=== PATIENT | female | born 1960 | race Caucasian/White ===

== ENCOUNTER 2022-04-13 14:01 | Inpatient (IN) | payer OTHER, MEDICAID ==
[~2022-04-13] VITALS: Ht 162.6 cm; Wt 51.3 kg
[2022-04-13 14:23] VITALS: BP 125/56
--- NOTE | 2022-04-13 14:28 | NUR ---
PT AMB TO BED 4.
[2022-04-13 15:13] LABS: BASOPHILS # (AUTO) 0.1 K/uL (0.00-0.22); BASOPHILS % (AUTO) 0.6 % (0.0-2.0); EOSINOPHILS % (AUTO) 0.1 % (0.0-4.0); HEMATOCRIT 36.9 % (36-48); HEMOGLOBIN 12.1 g/dL (12.0-16.0); LYMPHOCYTES # (AUTO) 1.6 K/uL (2.5-16.5); LYMPHOCYTES % (AUTO) 13.4 % (20.5-51.1); MEAN CORPUSCULAR HEMOGLOBIN 30 pg (27-31); MEAN CORPUSCULAR HGB CONC 33 g/dL (33-37); MEAN CORPUSCULAR VOLUME 91.8 fL (80-94); MONOCYTES # (AUTO) 0.5 K/uL (0.8-1.0); NEUTROPHILS # (AUTO) 9.9 K/uL (1.8-7.7); NEUTROPHILS % (AUTO) 81.9 % (42.2-75.2); PLATELET COUNT (AUTO) 155 K/uL (140-450); RED BLOOD CELL COUNT(AUTO) 4.01 MIL/uL (4.20-5.40); RED CELL DISTRIBUTION WIDTH 14.3 % (11.6-13.7); WHITE BLOOD COUNT (AUTO) 12.1 K/uL (4.8-10.8)
[2022-04-13 15:30] LABS: ALBUMIN 3.2 g/dL (3.4-5.0); ANION GAP 21.3 (8-16); CARBON DIOXIDE 18.1 mmol/L (21-32); CREATININE 1.7 mg/dL (0.6-1.3); POTASSIUM 4.4 mmol/L (3.5-5.1); TOTAL BILIRUBIN 0.7 mg/dL (0.0-1.0)
--- NOTE | 2022-04-13 15:35 | NUR ---
62F presents to ED with c/o ABD pain and buttock pain x3 days. Pt reports a constant, aching like, 4/10 pain to lower abd and buttock region. Pt denies trauma/injury, denies fevers, chills, n/v/d, UTI symptoms or use of meds for pain.
--- NOTE | 2022-04-13 15:39 | NUR ---
LACTIC ACID 7.7 REPORTED BY JACQUI. NOTIFIED DR DESAI.
[2022-04-13] MEDS ORDERED: NACL 0.9% 1,000 ML IV ONE ×2 (15:40→17:25)
[2022-04-13] MEDS ORDERED: MORPHINE SULFATE 4 MG/ML SYR IVP ONE (15:45)
--- NOTE | 2022-04-13 15:55 | NUR ---
Pt taken to CT via [facility].
--- NOTE | 2022-04-13 16:11 | NUR ---
Pt brought back from CT via [facility] for rehab medicine.
--- NOTE | 2022-04-13 16:45 | NUR ---
PT PLACED ON BEDSIDE MONITOR, HR OF [address] DESAI MADE AWARE AND BROUGHT TO BEDSIDE. PT PLACED ON DEFIB PADS AND 3 LEAD ECG'S.
[2022-04-13] MEDS ORDERED: ADENOSINE 6 MG/2 ML VIAL IVP ONE ×3 (16:47→18:25)
[2022-04-13] MEDS ORDERED: ETOMIDATE 20 MG/10 ML VIAL IVP ONE ×2 (16:55→18:25)
--- NOTE | 2022-04-13 16:57 | NUR ---
Note berta in EDM - 04/13/22 at 1815 by MEDRIKI PT PLACED ON BEDSIDE MONITOR, HR OF [address] DESAI MADE AWARE AND BROUGHT TO BEDSIDE. PT PLACED ON DEFIB PADS AND 3 LEAD ECG'S.
[2022-04-13] MEDS ORDERED: LORazepam 2 MG/ML VIAL ONE (17:12)
[2022-04-13] MEDS ORDERED: HALOPERIDOL IM 5 MG/ML VIAL ONE (17:19)
[2022-04-13] MEDS ORDERED: HALOPERIDOL IM 5 MG/ML VIAL IVP ONE (17:25)
[2022-04-13] MEDS ORDERED: LORazepam 2 MG/ML VIAL IVP ONE (17:25)
--- NOTE | 2022-04-13 17:25 | NUR ---
AT BEDSIDE FOR SVT 1649-6MG ADENOSINE GIVEN 1651-12MG ADENOSINE GIVEN, PT HR STILL IN 180'S 1701-PT PLACED ON 4L N/C. RT AT BEDSIDE FOR CARDIOVERSION 1702-8MG ETOMIDATE GIVEN 1703- HR 186- SHOCK DELIVERED AT 120J FOR CARDIOVERSION 1704-HR NOW 85 S/P CARDIOVERSION 1715- PT AGITATED, 1MG ATIVAN GIVEN. 1720-PT CONTINUES TO BE AGITATED 5MG HALDOL IV GIVEN
[2022-04-13] MEDS ORDERED: MORPHINE SULFATE 2 MG/ML SYR IVP PRN (18:25)
[2022-04-13] MEDS ORDERED: ZOLPIDEM 10 MG TAB PO PRN (18:25)
[2022-04-13] MEDS ORDERED: ONDANSETRON 4 MG/2 ML VIAL IVP PRN (18:25)
[2022-04-13] MEDS ORDERED: DOCUSATE SODIUM 100 MG GELCAP PO PRN (18:25)
[2022-04-13] MEDS ORDERED: MAG SULF 2000 MG/WATER PREMIX 50 ML IV PRN (18:25)
[2022-04-13] MEDS ORDERED: POTASSIUM CHLORIDE 10 MEQ TABER PO PRN (18:25)
[2022-04-13] MEDS ORDERED: ACETAMINOPHEN 325 MG TAB PO PRN (18:25)
[2022-04-13] MEDS ORDERED: cefTRIAXone 1,000 MG VIAL ONE (18:46)
[2022-04-13] MEDS ORDERED: SERT50TA PO (19:13)
[2022-04-13] MEDS ORDERED: [UNRECOGNIZED DRUG - CODE] PO (19:13)
[2022-04-13] MEDS ORDERED: CLOZ100T PO (19:13)
[2022-04-13] MEDS ORDERED: TRAZ-343 PO (19:13)
--- NOTE | 2022-04-13 19:21 | NUR ---
Pt report given to MARK TORRES. Transfer of care at this time.
--- NOTE | 2022-04-13 19:22 | NUR ---
Patient lying in bed, awake, chest rise and fall symmetrical, no s/s of distress.
--- NOTE | 2022-04-13 21:30 | NUR ---
Patient lying in bed, awake, chest rise and fall symmetrical, no s/s of distress.
[2022-04-13] MEDS: LORazepam 2 MG/ML VIAL IVP PRN (21:33)
--- NOTE | 2022-04-13 23:00 | NUR ---
Patient lying in bed, awake, chest rise and fall symmetrical, no c/o pain or s/s of distress.
--- NOTE | 2022-04-14 00:54 | NUR ---
Patient lying in bed, awake, chest rise and fall symmetrical, no c/o pain or s/s of distress.
--- NOTE | 2022-04-14 01:16 | NUR ---
Patient will be admitted to care of . Admited to telemetry. Will go to room 123A. Belongings list completed. Report to Ayesha RN. Ayesha RN verbalized understanding of report, no further questions.
[2022-04-14 01:40] VITALS: BP 93/47
--- NOTE | 2022-04-14 01:40 | NUR ---
REPORT RECEIVED FROM MELISSA FLORES. 47 YO DUSKY, FRAIL FEMALE RECEIVED VIA GURNEY TO 123A C/C EVALUATION OF DIFFUSE PAIN BACK, PELVIS AND LIMBS. IN ADDITION C/O "WEAKNESS" UPON ARISING LAST A.M AT [facility] ACCORDING TO CAREGIVER THERE BY THE NAME OF LAUREN BARRY. CALLED TO GET ADMISSION INFO FROM LIAM WILD (ADMIN) PT IS A POOR HISTORIAN AND MEDICAL RECORDS ARE LIMITED. CAREGIVER KNOWLEDGE LIMITED. TOLD TO CALL BACK IN A.M. DX: KATHARINA, LACTIC ACIDOSIS, SVT 180s. REPORTED ADENOSINE 12 MG AND 6 MG GIVEN. NO TO MINIMAL EFFECT. CARDIOVERTED. ST@ 102 PER TELE UPON ARRIVAL. O2 3L/NC. SATS 95%. B/P 93/47 HR 98. RESTLESS, FLINGING LEGS OVER RAILS. FREQUENTLY. PT TEACHING PER SAFETY PROTOCOL. PT UNABLE TO COMPLY PER COGNITIVE ACUITY AND RETENTION. CONTINUOUS OBSERVATION THEREFORE. LACTIC ACID 7.7 AND 4.5. DENIES CHEST PAIN OR PAIN OF ANY KIND SPECIFICALLY IN LEGS PELVIS AND BACK. 20 GA LFA SALINE LOCKED INTACT, CLEAN AND DRY. CT LUMBAR AND THORACIC SHOWING NO ACUTE FX. CONT TO MONITOR AND OBSERVE AT BEDSIDE NURSE AND SITTER.
[2022-04-14 04:00] VITALS: BP 98/52
--- NOTE | 2022-04-14 04:30 | NUR ---
PT SLEEPING FOR SHORT PERIODS. POSITION CHANGES AND LINEN CHANGE PER INCONTINENCE NEEDED. SKIN INTACT. NOTED 5BY 8.5 CM GRANULATED BIRTHMARK. PICTURE TAKEN. REPORTED FACIAL DUSKINESS DUE TO SKIN CANCER WHICH HAS NOTICEABLY SPREAD THE LAST 10 YEARS TO COVER MORE OF FACE. CONTINUE TO MONITOR. REMAINS STABLE.
[2022-04-14 05:35] LABS: BASOPHILS % (AUTO) 0.3 % (0.0-2.0); HEMATOCRIT 31.4 % (36-48); HEMOGLOBIN 10.5 g/dL (12.0-16.0); LYMPHOCYTES # (AUTO) 1.3 K/uL (2.5-16.5); LYMPHOCYTES % (AUTO) 9.9 % (20.5-51.1); MEAN CORPUSCULAR HEMOGLOBIN 31 pg (27-31); MEAN CORPUSCULAR HGB CONC 34 g/dL (33-37); MEAN CORPUSCULAR VOLUME 91.3 fL (80-94); MONOCYTES # (AUTO) 0.8 K/uL (0.8-1.0); NEUTROPHILS # (AUTO) 10.8 K/uL (1.8-7.7); NEUTROPHILS % (AUTO) 83.8 % (42.2-75.2); PLATELET COUNT (AUTO) 150 K/uL (140-450); RED BLOOD CELL COUNT(AUTO) 3.44 MIL/uL (4.20-5.40); WHITE BLOOD COUNT (AUTO) 12.9 K/uL (4.8-10.8)
[2022-04-14 06:06] LABS: ANION GAP 18.3 (8-16); CARBON DIOXIDE 20.2 mmol/L (21-32); POTASSIUM 3.5 mmol/L (3.5-5.1)
--- NOTE | 2022-04-14 07:30 | NUR ---
REPORT TO Adrienne NURSE FOR CONTINUITY OF CARE. ENDORSED ER LATER PROVIDED NAME OF KIN JIM FULLER TO CONTACT THIS A.M [phone] FOR MORE INFORMATION CONCERNING PT HX. RELINQUISHED CARE OF PT AT THIS TIME.
[2022-04-14 08:00] VITALS: BP 116/69
[2022-04-14] MEDS: LORazepam 2 MG/ML VIAL IVP PRN ×2 (08:26→19:56)
--- NOTE | 2022-04-14 09:14 | NUR ---
PATIENT HAS BEEN SCREENED AND CATEGORIZED MODERATE NUTRITION RISK. PATIENT WILL BE SEEN WITHIN 3-5 DAYS OF ADMISSION. REVIEWED BY MIHIR GUTIERREZ RD
[2022-04-14 12:00] VITALS: BP 112/69
--- NOTE | 2022-04-14 14:33 | NUR ---
PHYSICAL THERAPY NOTE:ATTEMPTED TO SEE PATIENT FOR PHYSICAL THERAPY EVALUATION HOWEVER PATIENT NOT APPROPRIATE AT THIS TIME. GIVEN MEDICATION. NOT ABLE TO FOLLOW ANY COMMANDS. DOES NOT RESPOND TO QUESTIONS; CONTINUES TO SLEEP. WILL FOLLOW UP WHEN APPROPRIATE.
[2022-04-14 16:00] VITALS: BP 105/65
--- NOTE | 2022-04-14 19:49 | NUR ---
RECEIVED SHIFT REPORT FROM JERSON FLORES, PATIENT WAS MILDLY AGITATIED BUT WILL FOLLOW COMMANDS WHERE HER NAME IS CALLED. PATIENT IS ON 3 LITERS OF OXYGEN SATURATION NOTED AT 95%. NO NOTED RESPIRATORY DISTRESS. NO NOTED S/S OF PAIN OR DISCOMFORT. [email or web address]
[2022-04-14 20:00] VITALS: BP 104/65
--- NOTE | 2022-04-14 20:00 | NUR ---
Patient's Plan of Care was discussed and reviewed with KENRICK: STEVE
[2022-04-15] VITALS: BP 112/70
--- NOTE | 2022-04-15 00:09 | NUR ---
AFTER ATIVAN PRN, PATIENT IS CURRENTLY ASLEEP WITHOUT DISTRESS. OXYGEN REMAIN ON 3 LITERS NO NOTED S/S OR RESPIRATORY DISTRESS. PATIENT REMAINS CLEAN AND DRY AT THIS TIME. NURSING WILL CONTINUE TO ANTICIPATE PATIENT' S NEEDS AND WILL FREQUENT HER ROOM. [email or web address]
[2022-04-15] MEDS: LORazepam 2 MG/ML VIAL IVP PRN (02:02)
--- NOTE | 2022-04-15 02:02 | NUR ---
COVERING RN IS JANA RN, WAS ABLE TO GIVE PATIENT ATIVAN BECAUSE PATIENT WAS PUNCHING THE AIR OR KICKING IN THE BED. PATIENT'S BLOOD PRESSURE 106/68 HR 99. [email or web address]
[2022-04-15 04:00] VITALS: BP 101/67
[2022-04-15 05:11] LABS: BASOPHILS % (AUTO) 0.3 % (0.0-2.0); EOSINOPHILS % (AUTO) 0.5 % (0.0-4.0); HEMATOCRIT 35.1 % (36-48); HEMOGLOBIN 11.6 g/dL (12.0-16.0); LYMPHOCYTES # (AUTO) 1.3 K/uL (2.5-16.5); LYMPHOCYTES % (AUTO) 14.8 % (20.5-51.1); MEAN CORPUSCULAR HEMOGLOBIN 31 pg (27-31); MEAN CORPUSCULAR HGB CONC 33 g/dL (33-37); MEAN CORPUSCULAR VOLUME 92.7 fL (80-94); MONOCYTES # (AUTO) 0.7 K/uL (0.8-1.0); MONOCYTES % (AUTO) 7.5 % (1.7-9.3); NEUTROPHILS % (AUTO) 76.9 % (42.2-75.2); PLATELET COUNT (AUTO) 177 K/uL (140-450); RED BLOOD CELL COUNT(AUTO) 3.78 MIL/uL (4.20-5.40); RED CELL DISTRIBUTION WIDTH 14.7 % (11.6-13.7)
--- NOTE | 2022-04-15 05:15 | NUR ---
RT WAS NOT AWARE OF PATIENT ON 3 LITER OF OXYGEN VIA NASAL CANULA. PATIENT DESATURATED WHEN HEAD OF BED IS NOT ELEVATED. PATIENT SLEPT WITHOUT INCIDENT. PATIENT WAS KEPT CLEAN AND DRY. PATIENT WAS BATHED TO PREVENT BED SOARS. SIDE RAILS UP X 4 SAFETY AND POSITIONING. NURSING WILL FREQUENT THE ROOM TO ANTICIPATE NEEDS. [email or web address]
[2022-04-15 06:25] LABS: ANION GAP 16.9 (8-16); CARBON DIOXIDE 18.6 mmol/L (21-32); CREATININE 0.8 mg/dL (0.6-1.3); POTASSIUM 3.5 mmol/L (3.5-5.1)
--- NOTE | 2022-04-15 07:18 | NUR ---
ENDORSED PATIENT TO ROMAN FLORES, PATIENT WAS BEGINNING TO AWAKEN AND BECOMING FIDGETY AND REMOVE HE PULSE OX. [email or web address]
--- NOTE | 2022-04-15 07:20 | NUR ---
RECEIVED PT FROM NIGHT RN, PT IS ASLEEP, LYIMNG ON THE BED WITH SIDE RAILS UP AND CALL LIGHT WITHIN REACH, PT IS ON O2 3L NC, RESPIRATION IS EVEN, VISIBLE CHEST RISE AND FALL, SKIN IS COLORED ROMERO DUE TO SKIN CANCER, IV LINE NOTED ON THE LEFT FOREARM G. 20 ON SALINE LOCK, NO SIGN OF DISTRESS NOTED AND WILL CONTINUE TO MONITOR PT.
[2022-04-15 08:00] VITALS: BP 110/76
--- NOTE | 2022-04-15 09:29 | NUR ---
PT IS STILL SLEEPING NOW, BUT AROUSABLE WHEN CALLED BY NAME AND BY TOUCH, WAS OFFERED TO HAVE BREAKFAST BUT REFUSED, WILL HAVE PT FEED ONCE FULLY AWAKE,
--- NOTE | 2022-04-15 11:02 | NUR ---
PT WAS CLEANED AND REPOSITIONED, GOWNS AND BEDDINGS WERE CHANGED, PT IS STILL DROWSY AND LETHARGIC
--- NOTE | 2022-04-15 11:40 | NUR ---
dr. thomas made rounds and came to the pt's room and was given some information regarding what the pt's mother said and gave a telephone order to start pt on normal saline at 60ml/hr.
[2022-04-15 12:00] VITALS: BP 114/77
[2022-04-15 16:00] VITALS: BP 109/61
[2022-04-15] MEDS: NACL 0.9% 1,000 ML IV SCH (16:17)
--- NOTE | 2022-04-15 19:10 | NUR ---
RECEIVED ENDORSEMENT FROM DAY SHIFT NURSE FOR CONTINUITY OF CARE. PT IS AWAKE IN BED, ALERT AND ORIENTED TO PERSON ONLY. NO COMPLAINTS OF PAIN AT THIS TIME. ON 2L NC WITH NO APPARENT SIGNS OF ACUTE DISTRESS. RESPIRATIONS EVEN AND UNLABORED. IV SITE LOCATED AT THE LEFT ANTECUBITAL REGION 22 GAUGE, INTACT AND PATENT. SKIN TUMOR LOCATED NEAR LOWER ABDOMEN. PT OVERALL SKIN APPEARS ASHEN IN COLOR, OTHERWISE SKIN IS INTACT. ALL SAFETY MEASURES IN PLACE. BED IN LOW/LOCKED POSITION, CALL LIGHT WITHIN REACH. WILL CONTINUE TO MAKE FREQUENT ROUNDS
--- NOTE | 2022-04-15 19:36 | NUR ---
ENDORSED PT TO NIGHT RN FOR CONTINUITY OF CARE, PT IS STABLE AT THIS TIME.
[2022-04-15 20:00] VITALS: BP 122/73
--- NOTE | 2022-04-15 20:15 | NUR ---
IV site Restarted on L AC g22. Successful after 1 attempt. Resumed current IVF of NS and regulated @ 60 per hour. Will observe for any signs of infiltration.
[2022-04-16] VITALS: BP 100/55
--- NOTE | 2022-04-16 02:34 | NUR ---
URINE SAMPLE COLLECTED. PT ASSISTED TO RESTROOM AND HAD A LARGE BOWEL MOVEMENT.FORMED STOOL. NO BLOOD NOTED. WILL CONTINUE TO MONITOR.
[2022-04-16 02:41] LABS: APPEARANCE,URINE CLEAR (CLEAR); BILIRUBIN,URINE NEGATIVE (NEGATIVE); BLOOD, URINE NEGATIVE (NEGATIVE); COLOR,URINE YELLOW (YELLOW); LEUKOCYTE ESTERASE ,URINE NEGATIVE (NEGATIVE); NITRITE, URINE NEGATIVE (NEGATIVE); UGLUCOSE NEGATIVE (NEGATIVE)
[2022-04-16 03:04] LABS: RBC,URINE 0-5 /HPF (0-5); WBC,URINE 0-5 /HPF (0-5)
[2022-04-16 04:00] VITALS: BP 123/72
[2022-04-16 06:41] LABS: BASOPHILS % (AUTO) 0.5 % (0.0-2.0); EOSINOPHILS # (AUTO) 0.1 K/uL (0-0.4); EOSINOPHILS % (AUTO) 1.5 % (0.0-4.0); HEMATOCRIT 33.5 % (36-48); HEMOGLOBIN 11.3 g/dL (12.0-16.0); LYMPHOCYTES # (AUTO) 1.7 K/uL (2.5-16.5); LYMPHOCYTES % (AUTO) 17.8 % (20.5-51.1); MEAN CORPUSCULAR HEMOGLOBIN 31 pg (27-31); MEAN CORPUSCULAR HGB CONC 34 g/dL (33-37); MEAN CORPUSCULAR VOLUME 91.1 fL (80-94); MONOCYTES # (AUTO) 0.9 K/uL (0.8-1.0); NEUTROPHILS # (AUTO) 6.6 K/uL (1.8-7.7); NEUTROPHILS % (AUTO) 70.2 % (42.2-75.2); PLATELET COUNT (AUTO) 219 K/uL (140-450); RED BLOOD CELL COUNT(AUTO) 3.67 MIL/uL (4.20-5.40); RED CELL DISTRIBUTION WIDTH 14.3 % (11.6-13.7); WHITE BLOOD COUNT (AUTO) 9.5 K/uL (4.8-10.8)
--- NOTE | 2022-04-16 07:16 | NUR ---
PT IS STABLE. NO ACUTE EVENTS THROUGHOUT THE NIGHT.NO S/SX OF DISTRESS AT THIS MOMENT.ALL NEEDS ATTENDED. ALL PRECAUTIONS IN PLACE. CALL LIGHT WITHIN REACH. ENDORSED TO DAY RN.
--- NOTE | 2022-04-16 07:23 | NUR ---
got report from the night nurse, pt asking for juice to drink. [email or web address]
[2022-04-16 07:34] LABS: CARBON DIOXIDE 24.3 mmol/L (21-32); CREATININE 0.8 mg/dL (0.6-1.3); POTASSIUM 3.3 mmol/L (3.5-5.1)
[2022-04-16 08:00] VITALS: BP 106/61
[2022-04-16] MEDS: NACL 0.9% 1,000 ML IV SCH (09:18)
[2022-04-16 12:00] VITALS: BP 103/68
[2022-04-16 16:00] VITALS: BP 113/78
--- NOTE | 2022-04-16 19:24 | NUR ---
RECEIVED ENDORSEMENT FROM DAY SHIFT NURSE FOR CONTINUITY OF CARE. PT IS ASLEEP IN BED, ALERT AND ORIENTED TO PERSON AND PLACE. NO S/SX OF PAIN AT THIS TIME. CURRENTLY ON ROOM AIR WITH NO APPARENT SIGNS OF ACUTE DISTRESS. RESPIRATIONS EVEN AND UNLABORED. IV SITE LOCATED AT THE RIGHT ANTECUBITAL REGION 22 GAUGE, INTACT AND PATENT. SKIN TUMOR LOCATED NEAR LOWER ABDOMEN. SKIN IS STILL INTACT. ALL SAFETY MEASURES IN PLACE. BED IN LOW/LOCKED POSITION, CALL LIGHT WITHIN REACH. WILL CONTINUE TO MAKE FREQUENT ROUNDS.
[2022-04-16 20:00] VITALS: BP 101/66
[2022-04-17] VITALS (9 sets, daily range): BP systolic 77–108; BP diastolic 44–70
[2022-04-17] MEDS: NACL 0.9% 1,000 ML IV SCH ×2 (01:35→18:13)
--- NOTE | 2022-04-17 02:55 | NUR ---
PATIENT ASLEEP IN BED WITH NO SIGNS OF DISTRESS NOTED. WILL CONTINUE FREQUENT MONITORING.
[2022-04-17 05:59] LABS: ANION GAP 14.4 (8-16); CARBON DIOXIDE 25.4 mmol/L (21-32); CREATININE 0.7 mg/dL (0.6-1.3); POTASSIUM 3.8 mmol/L (3.5-5.1)
[2022-04-17 06:01] LABS: BASOPHILS # (AUTO) 0.1 K/uL (0.00-0.22); BASOPHILS % (AUTO) 0.7 % (0.0-2.0); EOSINOPHILS # (AUTO) 0.4 K/uL (0-0.4); EOSINOPHILS % (AUTO) 4.5 % (0.0-4.0); HEMATOCRIT 32.9 % (36-48); HEMOGLOBIN 11.1 g/dL (12.0-16.0); LYMPHOCYTES # (AUTO) 2.6 K/uL (2.5-16.5); LYMPHOCYTES % (AUTO) 31.5 % (20.5-51.1); MEAN CORPUSCULAR HEMOGLOBIN 30 pg (27-31); MEAN CORPUSCULAR HGB CONC 34 g/dL (33-37); MEAN CORPUSCULAR VOLUME 90.3 fL (80-94); MONOCYTES # (AUTO) 0.7 K/uL (0.8-1.0); MONOCYTES % (AUTO) 8.1 % (1.7-9.3); NEUTROPHILS # (AUTO) 4.6 K/uL (1.8-7.7); NEUTROPHILS % (AUTO) 55.2 % (42.2-75.2); PLATELET COUNT (AUTO) 226 K/uL (140-450); RED BLOOD CELL COUNT(AUTO) 3.64 MIL/uL (4.20-5.40); RED CELL DISTRIBUTION WIDTH 14.4 % (11.6-13.7); WHITE BLOOD COUNT (AUTO) 8.3 K/uL (4.8-10.8)
--- NOTE | 2022-04-17 07:20 | NUR ---
GOT REPORT FROM THE NIGHT NURSE, PT IS SLEEPING NO SOB.[id number]
--- NOTE | 2022-04-17 10:15 | NUR ---
STARTED IV WITH 20G ON THE RIGHT ARM .[id number]
--- NOTE | 2022-04-17 16:13 | NUR ---
[place] PHYSICAL THERAPIST CLEARED PT TO GO BACK TO [facility]. WILL CALLED [facility] TO SET UP TRANSPORT
--- NOTE | 2022-04-17 16:17 | NUR ---
CALLED [facility], LIAM IS UNABLE TO ANSWER THE PHONE. TOOL REPAIRER STATED TO CALL BACK IN AN HOUR.
--- NOTE | 2022-04-17 17:03 | NUR ---
SPOKE WITH [facility]AM FROM [facility], STATED IT IS TOO LATE FOR TRANSFER. FOR CASE MANAGEMENT TO CALL IN THE MORNING TO SET UP DISCHARGE.
--- NOTE | 2022-04-17 18:14 | NUR ---
PT DISCHARGED BUT BECAUSE IT WAS LATE FOR THE GROUP HOME TO ARRANGE THE TRANSPORTER , PT WILL GOT TOMORROW, DISCHARGE PAPERS ALREADY PRINTED OUT.[id number]
--- NOTE | 2022-04-17 19:58 | NUR ---
PATIENT BLOOD PRESSURE IS 77/44 WITH HEART RATE OF 78 ON RIGHT ARM AND 84/49 WITH HEART RATE OF [address] SARKAR NOTIFIED. ORDERS GIVEN TO GIVE 1L NS BOLUS X1 AND IF BLOOD PRESSURE DOESN'T IMPROVE. TRANSFER TO ICU. Anjum LUEVANO RN.
[2022-04-17] MEDS ORDERED: NACL 0.9% 1,000 ML IV SCH (20:00)
--- NOTE | 2022-04-17 21:11 | NUR ---
PATIENT BLOOD PRESSURE NOW 85/49 WITH HEART RATE OF 78 [address] SARKAR CALLED AND NOTIFIED. ORDERS GIVEN TO TRANSFER TO ICU AND START ON LEVOPHED. ARMIN CHARGE NURSE NOTIFIED. Anjum LUEVANO RN.
--- NOTE | 2022-04-17 22:03 | NUR ---
PATIENT TRANSFERRED TO ICU TO BED 2. REPORT GIVEN TO MARK ROLDAN. Anjum LUEVANO RN.
--- NOTE | 2022-04-17 23:00 | NUR ---
PATIENT TRANSFFERED FROM [facility], REPORT RECEIVED FROM NELLIE Montesinos RN. PATIENT RECEIVED AWAKE, ALERT AND ABLE TO SELF TRANSFER FROM MST BED TO ICU BED. PATIENT WAS PLACED ON BEDSIDE CUSTOMER CARE REPRESENTATIVE, SKIN INTACT. PATIENT PROVIDED WITH EDUCATION ON THE USE OF THE CALL LIGHT AND INFORMED TO ASK FOR ASSISTANCE WITH ALL NEEDS. BED WAS PLACED IN THE LOWEST POSITION WITH ELEVATION OF TE HEAD.
[2022-04-18] VITALS: BP 100/61
[2022-04-18] MEDS ORDERED: ZOLPIDEM 5 MG TAB ONE ×2 (01:18→01:26)
[2022-04-18 02:00] VITALS: BP 88/67
[2022-04-18 04:00] VITALS: BP 100/61
--- NOTE | 2022-04-18 05:10 | NUR ---
PATIENT TRANSPORTED TO [facility] VIA GURNEY FOR L-SPINE
[2022-04-18 05:27] LABS: BASOPHILS % (AUTO) 0.5 % (0.0-2.0); EOSINOPHILS # (AUTO) 0.3 K/uL (0-0.4); HEMOGLOBIN 10.4 g/dL (12.0-16.0); LYMPHOCYTES # (AUTO) 2.6 K/uL (2.5-16.5); LYMPHOCYTES % (AUTO) 32.9 % (20.5-51.1); MEAN CORPUSCULAR HEMOGLOBIN 31 pg (27-31); MEAN CORPUSCULAR HGB CONC 35 g/dL (33-37); MEAN CORPUSCULAR VOLUME 90.1 fL (80-94); MONOCYTES # (AUTO) 0.7 K/uL (0.8-1.0); MONOCYTES % (AUTO) 8.5 % (1.7-9.3); NEUTROPHILS # (AUTO) 4.2 K/uL (1.8-7.7); NEUTROPHILS % (AUTO) 54.1 % (42.2-75.2); PLATELET COUNT (AUTO) 204 K/uL (140-450); RED BLOOD CELL COUNT(AUTO) 3.33 MIL/uL (4.20-5.40); RED CELL DISTRIBUTION WIDTH 14.3 % (11.6-13.7); WHITE BLOOD COUNT (AUTO) 7.8 K/uL (4.8-10.8)
[2022-04-18 06:05] LABS: CARBON DIOXIDE 25.9 mmol/L (21-32); CREATININE 0.7 mg/dL (0.6-1.3); POTASSIUM 3.9 mmol/L (3.5-5.1)
--- NOTE | 2022-04-18 07:16 | NUR ---
TRANSFER OF CARE TO DAY SHIFT, REPORT ENDORSED TO PHYLLIS. MARK
[2022-04-18 08:00] VITALS: BP 107/61
--- NOTE | 2022-04-18 08:08 | NUR ---
Pt up using bedside commode with steady gait, had void and BM.
[2022-04-18] MEDS ORDERED: PRO5 PO (08:48)
--- NOTE | 2022-04-18 10:21 | NUR ---
Dr. Colette miller at bedside.
[2022-04-18] MEDS ORDERED: ZOLPIDEM 5 MG TAB PO PRN (10:45)
[2022-04-18] MEDS: NACL 0.9% 1,000 ML IV SCH (11:21)
[2022-04-18 12:00] VITALS: BP 104/67
[2022-04-18 12:26] VITALS: BP 104/72
[2022-04-18] MEDS ORDERED: MIDODRINE 5 MG TAB PO SCH (13:00)
--- NOTE | 2022-04-18 13:09 | NUR ---
Discharge Patient ambulatory with steady gait for discharge to [facility], accompanied by patient's mother via private auto. Signed and discussed discharge packet, homeless resources, and new prescription of midodrine. IV catheter removed, tip intact, bleeding controlled. ID band removed. All belongings sent with patient.
== END 2022-04-18 13:09 | disposition home or self-care (01) | DRG 871 ==
LOC: MED 14:01 → MTU 18:22 → MIC 04-17 21:51
PROVIDERS: ADMIT Family Medicine; ATTEND Family Medicine
PROC: 5A2204Z Restoration of Cardiac Rhythm, Single (ICD-10-PCS; principal; 2022-04-13)
DX: A41.9 Sepsis, unspecified organism (principal); N17.0 Acute kidney failure with tubular necrosis; N39.0 Urinary tract infection, site not specified; E87.20 Acidosis, unspecified; I47.1 Supraventricular tachycardia; J81.1 Chronic pulmonary edema; Z20.822 Contact with and (suspected) exposure to COVID-19; G89.29 Other chronic pain; M54.9 Dorsalgia, unspecified; N20.0 Calculus of kidney; K44.9 Diaphragmatic hernia without obstruction or gangrene; M51.34 Other intervertebral disc degeneration, thoracic region; E86.0 Dehydration; K56.41 Fecal impaction; Z79.899 Other long term (current) drug therapy
CPT/HCPCS: 36415; 71045; 72100; 72128; 72131; 80048; 80053; 81001; 83605; 83690; 83735; 85025; 87040; 87081; 93005; 94640; 96361; 96374; 96375; 97116; 97163-GP; 97530; 99291; J0153; J0696; J1630; J2060; J2270; J3490; J7060; J7070; Q0092